=== PATIENT | female | born 1985 | race African-American/Black ===

== ENCOUNTER 2017-02-02 18:16 | Emergency (ER) | payer OTHER ==
[~2017-02-02] VITALS: Ht 170.2 cm; Wt 81.6 kg
[~2017-02-02 18:16] MED LIST: AMOXICILLIN500 MG ORAL; AUGMENTIN TAB875 MG PO; BACTRIM DS TAB1 EAC1 ORAL; CEPHALEXIN500 MG ORAL; CIPRO500 MG PO; CLINDAMYCIN HC150 MG ORAL; CYCLOBENZAPRINE10 MG ORAL; DEPO-ESTRAD5 MG/1 ML IM; DOXYCYCLINE MO100 MG ORAL; FLAGYL500 MG PO; IBUPROFEN600 MG ORAL; IBUPROFEN800 MG ORAL; KEFLEX500 MG ORAL; NKM; NORCO 5-325 TA1 EACH ORAL; ONDANSETRON ODT4 MG ORAL; PRENATAL MULTI1 EAC1 PO; TRAMADOL HCL50 MG ORAL; TYLENOL/CODEI12.5 ML PO; VICODIN 5-5001 EACH ORAL; ZOFRAN4 MG ORAL
[2017-02-02 18:21] VITALS: BP 122/73
[2017-02-02] MEDS ORDERED: ROBAXIN-750750 MG PO (19:08)
[2017-02-02] MEDS ORDERED: IBUPROFEN600 MG ORAL (19:08)
[2017-02-02 19:20] VITALS: BP 122/73
--- NOTE | 2017-02-05 15:41 | Emergency Room Report ---
History of Present Illness General Chief Complaint: Lower Back Pain or Injury Source: Patient Present Illness HPI The patient is a 31-year-old female presenting for left-sided back pain which occurred while moving heavy furniture yesterday. The patient is unsure of any injury that occurred during this time. Pain is primarily at the left mid back and radiates to the L lower back. It is worse with twisting motion. She denies previous injury to this area. It is described as an 8/10 dull ache. She has taken naproxen which does help. She denies any other symptoms including numbness/tingling, N, V, F, chills, weakness, abd pain Allergies: Coded Allergies: No Known Allergies (Unverified , 10/12/12) Patient History Past Medical History: see triage record Pertinent Family History: none Last Menstrual Period: 4-25 Now: No Reviewed Nursing Documentation: PMH: Agreed, PSxH: Agreed Nursing Documentation-PMH Past Medical History: No History, Except For Hx Hypertension: Yes - diet controlled Review of Systems All Other Systems: negative except mentioned in HPI Physical Exam Vital Signs Date Time Temp Pulse Resp B/P Pulse Ox O2 Delivery O2 Flow Rate FiO2 02/02/17 18:21 98.2 70 18 122/73 98 Room Air Sp02 EP Interpretation: reviewed, normal General Appearance: no apparent distress, alert, GCS 15, non-toxic Head: normocephalic, atraumatic Eyes: bilateral eye PERRL, bilateral eye normal inspection ENT: hearing grossly normal, normal pharynx, no angioedema, normal voice Neck: full range of motion, supple/symm/no masses Respiratory: chest non-tender, lungs clear, normal breath sounds, speaking full sentences Musculoskeletal: normal inspection, gait/station normal, normal range of motion , tender - TTP over the L lumbar paraspinous muscles Neurologic: alert, oriented x3, responsive, motor strength/tone normal, sensory intact, normal gait, speech normal Psychiatric: judgement/insight normal, memory normal, mood/affect normal, no suicidal/homicidal ideation Skin: normal color, no rash, warm/dry, well hydrated Lymphatic: no adenopathy Medical Decision Making PA Attestation Dr. Garcia is my supervising physician. Patient management was discussed with my supervising physician Diagnostic Impression: Primary Impression: Muscle strain ER Course The patient is a 31-year-old female presenting for left-sided back pain which occurred while moving heavy furniture yesterday Ddx considered include but not limited to lumbar strain, degenerative disease, disc herniation PE: vitals WNL. NAD There is no midline tenderness. There is tenderness to palpation over the left lumbar paraspinous muscles. Normal gait. Normal active range of motion. The patient is given Motrin and Robaxin and will followup with PMD. ER precautions are given Last Vital Signs Date Time Temp Pulse Resp B/P Pulse Ox O2 Delivery O2 Flow Rate FiO2 02/02/17 19:20 98.2 70 18 122/73 98 Room Air Status: improved Disposition: HOME, SELF-CARE Condition: Stable Scripts Methocarbamol* (ROBAXIN-750*) 750 Mg Tablet 750 MG PO TID, #21 TAB 0 Refills Prov: MARIANA BRIONES.AJanelle 02/02/17 Ibuprofen* (MOTRIN*) 600 Mg Tablet 600 MG ORAL Q6H Y for For Pain, #30 TAB Prov: MARIANA BRIONES 02/02/17 Referrals: [facility],REFERRING (PCP) Patient Instructions: Back Pain, Adult Additional Instructions: I discussed my findings with the patient. All questions and concerns have been answered. Treatment and medication compliance have been addressed. I advised the patient that they need to follow up with PMD in 3-5 days. Return to ED if pain remains or worsens, numbness or tingling occurs, new rash is noticed, fever is noticed, or if needed for any reason. Patient verbalized understanding of discharge instructions. MARIANA BRIONES February 05, 2017 15:40
== END 2017-02-02 19:20 | disposition home or self-care (01) ==
LOC: EMR 18:55
DX: S39.012A Strain of muscle, fascia and tendon of lower back, initial encounter (principal); X50.0XXA Overexertion from strenuous movement or load, initial encounter; Y93.9 Activity, unspecified; Y92.9 Unspecified place or not applicable; I10 Essential (primary) hypertension
CPT/HCPCS: 99284

== ENCOUNTER 2017-10-26 17:26 | Emergency (ER) | payer MEDICAID, OTHER ==
[~2017-10-26] VITALS: Ht 170.2 cm; Wt 77.1 kg
[~2017-10-26 17:26] MED LIST changes: +ROBAXIN-750750 MG PO
[2017-10-26 17:48] VITALS: BP 117/73
[2017-10-26] MEDS ORDERED: TAMIFLU75 MG ORAL (18:07)
--- NOTE | 2017-10-26 18:07 | Emergency Room Report ---
History of Present Illness General Chief Complaint: Sore Throat Source: Patient, Medical Record Present Illness HPI 32-year-old female patient presents ER complaining of sore throat and flulike symptoms for the past 2 days. Patient denies fever. Patient reports sore throat, nausea, vomiting, watery diarrhea. Patient denies blood in vomit or stool or diarrhea. Patient states she is able to tolerate fluids by mouth; states it is painful when swallowing when she eats. Patient reports taking ibuprofen and cough the patient home with mild relief of symptoms. Patient presented with daughter who had similar symptoms. Patient reports history of sick contacts in the house. Patient denies chest pain, SOB, rash, dysuria, hematuria. Allergies: Coded Allergies: No Known Allergies (Unverified , 10/12/12) Patient History Past Medical History: see triage record Last Menstrual Period: 09/25/17 Immunizations: UTD Reviewed Nursing Documentation: PMH: Agreed, PSxH: Agreed Nursing Documentation-PMH Past Medical History: No History, Except For Hx Hypertension: Yes - diet controlled Review of Systems All Other Systems: negative except mentioned in HPI Physical Exam Vital Signs Date Time Temp Pulse Resp B/P (MAP) Pulse Ox O2 Delivery O2 Flow Rate FiO2 10/26/17 17:35 98.1 87 18 117/73 97 Room Air Sp02 EP Interpretation: reviewed, normal General Appearance: no apparent distress, alert, GCS 15, non-toxic Head: normocephalic, atraumatic Eyes: bilateral eye normal inspection, bilateral eye PERRL ENT: hearing grossly normal, normal pharynx, TMs + canals normal, uvula midline , moist mucus membranes, nasal congestion, pharyngeal erythema Neck: full range of motion Respiratory: chest non-tender, lungs clear, normal breath sounds, speaking full sentences Cardiovascular #1: regular rate, rhythm Gastrointestinal: normal bowel sounds, non tender, soft, no mass, no organomegaly, non-distended, no guarding, no rebound Genitourinary: no CVA tenderness Musculoskeletal: back normal, digits/nails normal, gait/station normal, normal range of motion, non-tender, calf tenderness Neurologic: alert, oriented x3, responsive, motor strength/tone normal, sensory intact, speech normal Psychiatric: mood/affect normal Skin: normal color, no rash, warm/dry, well hydrated Lymphatic: adenopathy Medical Decision Making PA Attestation Dr. Vitale is my supervising Physician whom patient management has been discussed with. Diagnostic Impression: Primary Impression: Upper respiratory infection, viral ER Course Pt presents to ED c/o flu-like symptoms. DDX considered but are not limited to influenza, viral URI, strep throat, rhinitis, sinusitis, otitis media. VITAL SIGNS are WNL, patient is afebrile ORDERS: none required at this time, diagnosis is clinical ED INTERVENTIONS: none required at this time DISCHARGE: At this time pt is stable for d/c to home. -Rx given for Prednisone -Rx given for Tamiflu for influenza. Patient to take medications as instructed, continue to take medications at home as instructed. Patient provided with work note. Will provide with patient care instructions and any necessary prescriptions. Care plan and follow-up instructions provided. Patient instructed to follow-up with primary care provider in 3 - 5 days. Patient questions asked and answered. ER precautions given. Patient instructed to return to ER immediately for any new or worsening of symptoms including but not limited to increasing SOB, persistent fever. Last Vital Signs Date Time Temp Pulse Resp B/P (MAP) Pulse Ox O2 Delivery O2 Flow Rate FiO2 10/26/17 17:48 98.1 78 18 117/73 97 Room Air Disposition: HOME, SELF-CARE Condition: Stable Scripts Prednisone* (PREDNISONE*) 20 Mg Tablet 20 MG ORAL DAILY for 2 Days, #2 TAB 0 Refills Prov: Edinson Stovall 10/26/17 Oseltamivir Phosphate (Tamiflu) 75 Mg Capsule 75 MG ORAL TWICE A DAY for 5 Days, #10 CAP Prov: Edinson Stovall 10/26/17 Patient Instructions: Diarrhea, Adult, Ylnb-in-Ssma, Influenza, Adult, Easy-to- Read, Sore Throat Additional Instructions: Followup with primary care provider in 3 -5 days. Take medications as directed. Patient questions asked and answered. ER precautions given, patient instructed to return to ER immediately for any new or worsening of symptoms. Edinson Stovall Oct 26, 2017 18:07
[2017-10-26] MEDS ORDERED: PREDNISONE20 MG ORAL (18:31)
[2017-10-26 18:44] VITALS: BP 117/73
== END 2017-10-26 18:55 | disposition home or self-care (01) ==
LOC: EMR 18:05
DX: J06.9 Acute upper respiratory infection, unspecified (principal); B34.9 Viral infection, unspecified; I10 Essential (primary) hypertension
CPT/HCPCS: 99283; J7512

== ENCOUNTER 2018-02-16 17:02 | Emergency (ER) | payer MEDICAID ==
[~2018-02-16] VITALS: Ht 170.2 cm; Wt 83.9 kg
[~2018-02-16 17:02] MED LIST changes: +PREDNISONE20 MG ORAL; +TAMIFLU75 MG ORAL
[2018-02-16 17:19] VITALS: BP 119/78
[2018-02-16] MEDS ORDERED: ROBAXIN500 MG PO (17:37)
[2018-02-16] MEDS ORDERED: LIDOCAINE700 M1 TP (17:37)
[2018-02-16] MEDS ORDERED: TYLENOL EXTRA500 MG ORAL (17:37)
--- NOTE | 2018-02-16 17:39 | Emergency Room Report ---
History of Present Illness General Chief Complaint: Lower Back Pain or Injury Source: Patient Present Illness HPI 32-year-old female patient presents ER complaining of low back pain. Patient reports "I think it's a muscle spasm". Patient reports history muscle spasms in the past treated with muscle relaxants. Patient reports radiation of pain down her right leg to her knee. 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 denies history of cancer or drug use. Denies history of kidney stones. Denies bowel or bladder problems , denies dysuria, hematuria. Reports able to ambulate independently. Denies chest pain, fever, shortness of breath, abdominal pain. Denies acute injury. Reports history of similar symptoms, reports had imaging done at that time, negative for acute disease. Allergies: Coded Allergies: No Known Allergies (Unverified , 10/12/12) Patient History Past Medical History: see triage record Last Menstrual Period: 02/10/18 Reviewed Nursing Documentation: PMH: Agreed; PSxH: Agreed Nursing Documentation-PMH Past Medical History: No Stated History Hx Hypertension: Yes - diet controlled Review of Systems All Other Systems: negative except mentioned in HPI Physical Exam Vital Signs Date Time Temp Pulse Resp B/P (MAP) Pulse Ox O2 Delivery O2 Flow Rate FiO2 02/16/18 17:09 98.1 81 16 119/78 96 Room Air 98.1 Sp02 EP Interpretation: reviewed, normal General Appearance: well appearing, no apparent distress, alert, GCS 15, non- toxic Head: normocephalic, atraumatic Eyes: bilateral eye normal inspection, bilateral eye PERRL ENT: hearing grossly normal, normal pharynx, no angioedema, normal voice, uvula midline, moist mucus membranes Neck: full range of motion Respiratory: lungs clear, normal breath sounds, no rhonchi, no respiratory distress, no accessory muscle use, no wheezing, speaking full sentences Cardiovascular #1: regular rate, rhythm, no edema Gastrointestinal: non tender, soft, no mass, non-distended, no guarding, no rebound Genitourinary: no CVA tenderness Musculoskeletal: back normal, digits/nails normal, gait/station normal, normal range of motion, no calf tenderness, Ana Laura's Sign negative, other - no bony stepoff, no bony TTP, tender - right lumbosacral region Neurologic: alert, oriented x3, responsive, motor strength/tone normal, SLR negative, sensory intact, cerebellar normal, normal gait, speech normal Psychiatric: mood/affect normal Skin: no rash Lymphatic: no adenopathy Medical Decision Making PA Attestation Dr. De Jesus is my supervising Physician whom patient management has been discussed with. Diagnostic Impression: Primary Impression: Lumbosacral strain ER Course Pt presents to ED c/o back pain. DDX considered but are not limited to sprain, strain, cauda equina, muscle spasm. Low suspicion for cauda equina, no bowel or bladder incontinence or retention. No fever, nontoxic appearing, no radiation of pain, low suspicion for epidural mass. denies urinary symptoms, low suspicion for UTI, does not require urinalysis at this time. VITAL SIGNS are WNL, patient is afebrile Ordered pain medication. ER COURSE: On PE, mild tenderness palpation over right lumbosacral region, negative straight leg raise, no bony step-off, no bony tenderness to palpation. Right Patient reports lumbosacral pain with lateral twist to the left, full ROM. informed patient likely secondary to muscle spasm. Patient reports had imaging done previously, does not require imaging at this time. Advised patient on rest, ice, heat. Follow-up with PCP. Followup with pain management and/or PT. Request referral from PCP. Followup wtih PCP for further MRI and/or CT imaging as needed. DISCHARGE: -Rx provided for Tylenol -Rx provided for Lidocaine patch -Rx provided for Robaxin. SE may cause drowsiness, do not take prior to drinking , driving, or operating heJANZZ machinery. At this time pt. is stable for d/c to home. At this time patient is resting comfortably, in no acute distress, nontoxic appearing, smiling and talking without difficulty. Will provide printed patient care instructions, and any necessary prescriptions. Patient instructed to follow with primary care provider for further treatment and referral as needed. Care plan and follow up instructions have been discussed with the patient prior to discharge. Patient reports understanding and agreement to treatment plan. Patient questions asked and answered. ER precautions given, patient instructed to return to ER immediately for any new or worsening of symptoms. - Please note that this Emergency Department Report was dictated using [employer] drawer in technology software, occasionally this can lead to erroneous entry secondary to interpretation by the dictation equipment. Last Vital Signs Date Time Temp Pulse Resp B/P (MAP) Pulse Ox O2 Delivery O2 Flow Rate FiO2 02/16/18 17:09 98.1 81 16 119/78 96 Room Air 98.1 Disposition: HOME, SELF-CARE Condition: Stable Scripts Methocarbamol* (ROBAXIN*) 500 Mg Tablet 500 MG PO TID, #21 TAB 0 Refills Prov: Edinson Stovall 02/16/18 Lidocaine (Lidocaine) 1 Each Adh..patch 700 MG TP DAILY for 7 Days, #7 PATCH Prov: Edinson Stovall 02/16/18 Acetaminophen* (TYLENOL EXTRA STRENGTH*) 500 Mg Tablet 500 MG ORAL Q8H PRN for Prn Headache/Temp > 101, #30 TAB 0 Refills Prov: Edinson Stovall 02/16/18 Patient Instructions: Low Back Sprain With Rehab-[facility], Lumbosacral Strain Additional Instructions: Patient instructed to follow up with primary care provider 3-5 and discuss further referral and imaging at that time. Discuss referral to PT and pain management. Patient instructed on rest, ice and heat. Do not take muscle relaxant prior to drinking, driving, or operating heavy machinery. Take medications as directed. Patient questions asked and answered. ER precautions given, patient instructed to return to ER immediately for any new or worsening of symptoms. Edinson Stovall February 16, 2018 17:39
[2018-02-16] MEDS ORDERED: Methocarbamol 500mg tab ORAL ONE (17:45)
[2018-02-16] MEDS ORDERED: Acetaminophen 500mg (ES) tab ORAL ONE (17:45)
[2018-02-16 17:47] VITALS: BP 119/78
== END 2018-02-16 17:50 | disposition home or self-care (01) ==
LOC: EMR 17:48
DX: S39.012A Strain of muscle, fascia and tendon of lower back, initial encounter (principal); X58.XXXA Exposure to other specified factors, initial encounter; I10 Essential (primary) hypertension
CPT/HCPCS: 99284

== ENCOUNTER 2018-02-25 08:47 | Emergency (ER) | payer MEDICAID ==
[~2018-02-25] VITALS: Ht 170.2 cm; Wt 83.9 kg
[~2018-02-25 08:47] MED LIST changes: +LIDOCAINE700 M1 TP; +ROBAXIN500 MG PO; +TYLENOL EXTRA500 MG ORAL
[2018-02-25] MEDS ORDERED: IBUPROFEN600 MG ORAL (09:05)
[2018-02-25 09:06] VITALS: BP 123/75
[2018-02-25 09:07] VITALS: BP 123/75
--- NOTE | 2018-02-25 09:11 | Emergency Room Report ---
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 the pain has worsened Denies any paresthesia Denies any loss of control of bowel or urination Pain is 6 out of 10 localized to the mid back and also the right lower back region Denies any abdominal pain denies any other fall or trauma Allergies: Coded Allergies: No Known Allergies (Unverified , 10/12/12) Patient History Past Medical History: see triage record Pertinent Family History: none Reviewed Nursing Documentation: PMH: Agreed; PSxH: Agreed Nursing Documentation-PMH Hx Hypertension: Yes - diet controlled Review of Systems All Other Systems: negative except mentioned in HPI Physical Exam Vital Signs Date Time Temp Pulse Resp B/P (MAP) Pulse Ox O2 Delivery O2 Flow Rate FiO2 02/25/18 08:49 98.1 76 20 123/75 98 Room Air 98.1 Sp02 EP Interpretation: reviewed, normal General Appearance: well appearing, no apparent distress Head: normocephalic, atraumatic Eyes: bilateral eye PERRL, bilateral eye EOMI ENT: normal pharynx, no angioedema Neck: supple Respiratory: lungs clear Cardiovascular #1: regular rate, rhythm, no edema Gastrointestinal: normal bowel sounds, non tender, soft Genitourinary: no CVA tenderness Musculoskeletal: other - Discomfort on palpation of the right paralumbar lumbar region, L3-4-5, no obvious midline step-off, sensory intact Neurologic: alert, oriented x3, 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 tested, motor strength/tone normal Skin: no rash Medical Decision Making Diagnostic Impression: Primary Impression: Back pain ER Course Patient's clinical exam is consistent with exacerbation of low back pain Patient will best benefit from referral to outpatient clinic Worker's Comp./ Versus primary physician At this time I feel of the repetitive motion and standing and lifting does exacerbate the discomfort And patient provided with a note for limited activity for the next 3-4 days until follow-up can be obtained by outpatient resource Last Vital Signs Date Time Temp Pulse Resp B/P (MAP) Pulse Ox O2 Delivery O2 Flow Rate FiO2 02/25/18 09:06 98.1 76 20 123/75 98 Room Air 98.1 Status: unchanged Disposition: HOME, SELF-CARE Condition: Stable Scripts Ibuprofen* (MOTRIN*) 600 Mg Tablet 600 MG ORAL Q8H PRN for For Pain, #20 TAB 0 Refills Prov: Chuy De Jesus DO 02/25/18 Referrals: NOT CHOSEN [facility],REFERRING [facility],REFERRING (PCP) Departure Forms: Return to Work Return to Work in (Days): 3 Return to Work Date: Mar 01, 2018 Other Restrictions: limited lifting(0-5 Lbs), limited standing(30 min) x 3-5 days Patient Instructions: Back Pain, Adult Additional Instructions: Patient is provided with the discharge instructions notified to follow up with primary doctor in the next 2-3 days otherwise return to the er with any worsening symptoms. Please note that this report is being documented using [employer] technology. This can lead to erroneous entry secondary to incorrect interpretation by the dictating instrument. Chuy De Jesus DO February 25, 2018 09:11
== END 2018-02-25 09:20 | disposition home or self-care (01) ==
LOC: EMR 08:57
DX: M54.5 Low back pain (principal)
CPT/HCPCS: 99283

== ENCOUNTER 2018-03-24 18:08 | Emergency (ER) | payer SELFPAY ==
[~2018-03-24] VITALS: Ht 170.2 cm; Wt 90.7 kg
[2018-03-24] MEDS ORDERED: LIDOCAINE700 M1 TP (19:41)
[2018-03-24] MEDS ORDERED: TYLENOL EXTRA500 MG ORAL (19:41)
[2018-03-24] MEDS ORDERED: ROBAXIN500 MG PO (19:41)
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
[2018-03-24] MEDS ORDERED: Ketorolac 30mg Inj IM ONE (19:45)
[2018-03-24 20:00] VITALS: BP 120/84
[2018-03-24 20:06] VITALS: BP 120/84
== END 2018-03-24 20:06 | disposition home or self-care (01) ==
LOC: EMR 19:00
DX: M54.2 Cervicalgia (principal); M54.9 Dorsalgia, unspecified; R51 Headache; I10 Essential (primary) hypertension; V43.52XA Car driver injured in collision with other type car in traffic accident, initial encounter; Y92.410 Unspecified street and highway as the place of occurrence of the external cause
CPT/HCPCS: 96372; 99284; J1885

== ENCOUNTER 2018-08-09 13:30 | Emergency (ER) | payer MEDICAID ==
[~2018-08-09] VITALS: Ht 170.2 cm; Wt 90.7 kg
[2018-08-09] MEDS ORDERED: Norco 5mg/325mg tab ORAL ONE (15:00)
[2018-08-09] MEDS ORDERED: Fluorescein Strips BOTH EYES ONE (15:15)
[2018-08-09] MEDS ORDERED: Tetracaine 0.5% Opth 4ml Soln RIGHT EYE ONE (15:15)
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
[2018-08-09] MEDS ORDERED: OCUFLOX5 ML OP (15:32)
[2018-08-09] MEDS ORDERED: TYLENOL EXTRA500 MG ORAL (15:32)
[2018-08-09 15:36] VITALS: BP_SYST 121; BP_SYST 125; BP_DIAS 78; BP_DIAS 84
== END 2018-08-09 15:36 | disposition home or self-care (01) ==
LOC: EMR 15:36
DX: S05.01XA Injury of conjunctiva and corneal abrasion without foreign body, right eye, initial encounter (principal); X58.XXXA Exposure to other specified factors, initial encounter; Y92.9 Unspecified place or not applicable; H10.9 Unspecified conjunctivitis
CPT/HCPCS: 99283

== ENCOUNTER 2019-01-07 20:42 | Emergency (ER) | payer MEDICAID ==
[~2019-01-07] VITALS: Ht 170.2 cm; Wt 90.7 kg
[~2019-01-07 20:42] MED LIST changes: +OCUFLOX5 ML OP
[2019-01-07] MEDS ORDERED: prenatal (20:50)
--- NOTE | 2019-01-07 20:52 | NUR ---
ED Nurse Note: pt walked in c/o vaginal bleeding started today, pt reports she is 12 wks with twins, hx cone biopsy in august and per pt's wood panel inspector statement, pt was advised to come to ED. pt states it is spotting and had less than 1 pad. denies other sx. pt also states she has UTI and currently taking macrobid for UTI. Will cont monitor. G 5 T 3 P 0 A 2 L 3
[2019-01-07 21:15] LABS: BASOPHILS % (AUTO) 1.2 % (0.0-2.0); EOSINOPHILS % (AUTO) 1.8 % (0.0-3.0); HEMATOCRIT 38.7 % (37.0-47.0); LYMPHOCYTES % (AUTO) 17.8 % (20.0-45.0); MEAN CORPUSCULAR VOLUME 88 FL (80-99); MONOCYTES % (AUTO) 8.4 % (1.0-10.0); NEUTROPHILS % (AUTO) 70.9 % (45.0-75.0); PLATELET COUNT 300 K/UL (150-450); RED BLOOD COUNT 4.42 M/UL (4.20-5.40); RED CELL DISTRIBUTION WIDTH 12.6 % (11.6-14.8); WHITE BLOOD COUNT 15.6 K/UL (4.8-10.8)
--- NOTE | 2019-01-07 21:15 | NUR ---
ED Nurse Note: pt off to ultrasound.
[2019-01-07 21:17] LABS: APPEARANCE,URINE CLEAR; BILIRUBIN, URINE NEGATIVE (NEGATIVE); GLUCOSE, URINE (UA) NEGATIVE (NEGATIVE); KETONES,URINE 1+ (NEGATIVE); LEUKOCYTE ESTERASE ,URINE 1+ (NEGATIVE); NITRITE,URINE NEGATIVE (NEGATIVE); PH,URINE 5 (4.5-8.0); PROTEIN,URINE 1+ (NEGATIVE); UROBILINOGEN,URINE NORMAL MG/DL (0.0-1.0)
[2019-01-07 21:18] LABS: COLOR,URINE YELLOW
[2019-01-07 21:21] LABS: INR 0.9 (0.9-1.1)
[2019-01-07 21:23] LABS: ANION GAP 10 mmol/L (5-15); BLOOD UREA NITROGEN 7 mg/dL (7-18); CALCIUM 9.7 MG/DL (8.5-10.1); CARBON DIOXIDE 24 MMOL/L (21-32); CHLORIDE 102 MMOL/L (98-107); CREATININE 0.7 MG/DL (0.55-1.30); POTASSIUM 3.6 MMOL/L (3.5-5.1); SODIUM 136 MMOL/L (136-145)
[2019-01-07 21:28] LABS: ALANINE AMINOTRANSFERASE 21 U/L (12-78); ALBUMIN 3.6 G/DL (3.4-5.0); ALBUMIN/GLOBULIN RATIO 0.9 (1.0-2.7); ALKALINE PHOSPHATASE 56 U/L (46-116); ASPARTATE AMINO TRANSFERASE 12 U/L (15-37); BILIRUBIN,TOTAL 0.3 MG/DL (0.2-1.0)
--- NOTE | 2019-01-07 22:38 | Diagnostic Imaging Report ---
EXAM: US , Transvaginal CLINICAL HISTORY: ABD PAIN TECHNIQUE: Real-time transvaginal obstetrical ultrasound of the maternal pelvis and a first trimester with image documentation. Transvaginal imaging was used for better evaluation of the fetus and adnexa. COMPARISON: No relevant prior studies available. FINDINGS: Gestation: A single intrauterine gestational sac is identified with 2 living fetuses. Fetus A heart rate is 162 bpm. Fetus B heart rate is 171 bpm. 2 yolk sacs are visualized. The mean crown-rump length of fetus A is 3.04 cm corresponding to 9 weeks 6 days gestation. The mean crown-rump length of fetus B is 3.68 cm corresponding to 10 weeks 4 days gestation. Mean gestational sac diameter of fetus B is 8.29 cm. Gestational age by last menstrual period is 11 weeks 1 day. MELL: Estimated date of delivery by ultrasound 08/06/19. Placenta/amniotic fluid: 2 small sonolucent foci are seen in the placenta likely representing venous lakes. Uterus/cervix: The uterus measures 15.1 x 10.0 x 9.7 cm. The cervix measures 5.1 cm in length. No myometrial mass. Ovaries: Maternal ovaries are not visualized. Free fluid: No free fluid. IMPRESSION: 1. Single intrauterine gestational sacs with 2 living fetuses. Calculated ultrasound age of fetus A is 9 weeks 6 days and fetus B is 10 weeks 4 days. 2. Estimated date of delivery by ultrasound 08/06/19.
[2019-01-07 22:53] VITALS: BP 120/78
--- NOTE | 2019-01-07 22:53 | NUR ---
ED Nurse Note: pt cleared to be d/c per ERMD, pt discharge and aftercare instruction provided, pt education done via discussion and handout, pt advised to follow up with medical device sales consultant, return to ed if sx worsen or new sx develop, pt verbalized understanding and agrees with plan, vss, ambulatory w/ steady gait, left w/ all belongings. ID band removed, iv d/c.
--- NOTE | 2019-01-08 00:08 | Emergency Room Report ---
History of Present Illness General Chief Complaint: Complications Source: Patient Present Illness HPI 33-year-old female presents ED for evaluation. Patient complaining of vaginal bleeding which started today. States she is about 12 weeks with twins. She called her MIDDLE SCHOOL BASEBALL COACH who told her to come to the ER for ultrasound. Denies pain. Denies fevers or chills. No other aggravating relieving factors. Denies any other associated symptoms Allergies: Coded Allergies: No Known Allergies (Unverified , 08/09/18) Patient History Past Medical History: none Past Surgical History: none Pertinent Family History: none Social History: Denies: smoking, alcohol use, drug use Last Menstrual Period: 10/21/2018 Now: Yes - 3 months - twins : 5 Para: 3 Immunizations: UTD Reviewed Nursing Documentation: PMH: Agreed; PSxH: Agreed Nursing Documentation-PMH Past Medical History: No History, Except For Hx Hypertension: No Hx Gastrointestinal Problems: No - comb biopsy 09/12/2018 Review of Systems All Other Systems: negative except mentioned in HPI Physical Exam Vital Signs Date Time Temp Pulse Resp B/P (MAP) Pulse Ox O2 Delivery O2 Flow Rate FiO2 01/07/19 20:46 98.2 96 16 128/82 96 Sp02 EP Interpretation: reviewed, normal General Appearance: no apparent distress, alert, GCS 15, non-toxic Head: normocephalic, atraumatic Eyes: bilateral eye normal inspection, bilateral eye PERRL ENT: hearing grossly normal, normal pharynx, no angioedema, normal voice Neck: full range of motion, supple/symm/no masses Respiratory: chest non-tender, lungs clear, normal breath sounds, speaking full sentences Cardiovascular #1: regular rate, rhythm, no edema Cardiovascular #2: 2+ carotid (R), 2+ carotid (L), 2+ radial (R), 2+ radial (L) , 2+ dorsalis pedis (R), 2+ dorsalis pedis (L) Gastrointestinal: normal bowel sounds, non tender, soft, non-distended, no guarding, no rebound Rectal: deferred Genitourinary: normal inspection, no CVA tenderness Musculoskeletal: back normal, gait/station normal, normal range of motion, non- tender Neurologic: alert, oriented x3, responsive, motor strength/tone normal, sensory intact, speech normal Psychiatric: judgement/insight normal, memory normal, mood/affect normal, no suicidal/homicidal ideation Reflexes: 3+ bicep (R), 3+ bicep (L), 3+ tricep (R), 3+ tricep (L), 3+ knee (R) , 3+ knee (L) Skin: normal color, no rash, warm/dry, well hydrated Lymphatic: no adenopathy Medical Decision Making Diagnostic Impression: Primary Impression: Threatened ER Course Hospital Course 33-year-old F presents to ED complaining of vaginal bleeding. approxiamtely 12 weeks with twins Differential diagnoses include: gastrits, gastroenterits, ectopic , ovarian torsion/cyst, UTI Clinical course Patient placed on stretcher in ED. After initial history and physical I ordered labs, IV fluids and pelvic ultrasound. Labs-no leukocytosis, electrolytes okay, beta hCG > [id number], UA unremarkable OB US - twin gestation. One approximatly 9 weeks and one approximately 10 weeks. Both with heart rates. Discussed findings with patient. We'll provide copies of labs and ultrasound. Recommend close follow-up with MIDDLE SCHOOL BASEBALL COACH. Diagnosis - threatend Stable and discharged to home. Followup with PMD/MIDDLE SCHOOL BASEBALL COACH. Return to ED if symptoms recur or worsen Labs Test 01/07/19 21:00 White Blood Count 15.6 K/UL (4.8-10.8) Red Blood Count 4.42 M/UL (4.20-5.40) Hemoglobin 13.0 G/DL (12.0-16.0) Hematocrit 38.7 % (37.0-47.0) Mean Corpuscular Volume 88 FL (80-99) Mean Corpuscular Hemoglobin 29.4 PG (27.0-31.0) Mean Corpuscular Hemoglobin Concent 33.6 G/DL (32.0-36.0) Red Cell Distribution Width 12.6 % (11.6-14.8) Platelet Count 300 K/UL (150-450) Mean Platelet Volume 5.6 FL (6.5-10.1) Neutrophils (%) (Auto) 70.9 % (45.0-75.0) Lymphocytes (%) (Auto) 17.8 % (20.0-45.0) Monocytes (%) (Auto) 8.4 % (1.0-10.0) Eosinophils (%) (Auto) 1.8 % (0.0-3.0) Basophils (%) (Auto) 1.2 % (0.0-2.0) Prothrombin Time 9.8 SEC (9.30-11.50) Prothromb Time International Ratio 0.9 (0.9-1.1) Activated Partial Thromboplast Time 27 SEC (23-33) Urine Color Yellow Urine Appearance Clear Urine pH 5 (4.5-8.0) Urine Specific [place] 1.025 (1.005-1.035) Urine Protein 1+ (NEGATIVE) Urine Glucose (UA) Negative (NEGATIVE) Urine Ketones 1+ (NEGATIVE) Urine Blood 1+ (NEGATIVE) Urine Nitrite Negative (NEGATIVE) Urine Bilirubin Negative (NEGATIVE) Urine Urobilinogen Normal MG/DL (0.0-1.0) Urine Leukocyte Esterase 1+ (NEGATIVE) Urine RBC 0-2 /HPF (0 - 2) Urine WBC 2-4 /HPF (0 - 2) Urine Squamous Epithelial Cells Few /LPF (NONE/OCC) Urine Calcium Oxalate Crystals Few /LPF (NONE) Urine Bacteria Few /HPF (NONE) Urine Mucus Moderate /LPF (NONE/OCC) Urine HCG, Qualitative Positive (NEGATIVE) Sodium Level 136 MMOL/L (136-145) Potassium Level 3.6 MMOL/L (3.5-5.1) Chloride Level 102 MMOL/L (98-107) Carbon Dioxide Level 24 MMOL/L (21-32) Anion Gap 10 mmol/L (5-15) Blood Urea Nitrogen 7 mg/dL (7-18) Creatinine 0.7 MG/DL (0.55-1.30) Estimat Glomerular Filtration Rate > 60 mL/min (>60) Glucose Level 76 MG/DL (74-106) Calcium Level 9.7 MG/DL (8.5-10.1) Total Bilirubin 0.3 MG/DL (0.2-1.0) Aspartate Amino Transf (AST/SGOT) 12 U/L (15-37) Alanine Aminotransferase (ALT/SGPT) 21 U/L (12-78) Alkaline Phosphatase 56 U/L (46-116) Total Protein 7.8 G/DL (6.4-8.2) Albumin 3.6 G/DL (3.4-5.0) Globulin 4.2 g/dL Albumin/Globulin Ratio 0.9 (1.0-2.7) Lipase 112 U/L (73-393) Human Chorionic Gonadotropin, Quant 421482 mIU/mL (1-6) CT/MRI/US Diagnostic Results CT/MRI/US Diagnostic Results : Imaging Test Ordered: OB US Impression Gestation: A single intrauterine gestational sac is identified with 2 living fetuses. Fetus A heart rate is 162 bpm. Fetus B heart rate is 171 bpm. 2 yolk sacs are visualized. The mean crown-rump length of fetus A is 3.04 cm corresponding to 9 weeks 6 days gestation. The mean crown-rump length of fetus B is 3.68 cm corresponding to 10 weeks 4 days gestation. Mean gestational sac diameter of fetus B is 8.29 cm. Gestational age by last menstrual period is 11 weeks 1 day. MELL: Estimated date of delivery by ultrasound 08/06/19. Placenta/amniotic fluid: 2 small sonolucent foci are seen in the placenta likely representing venous lakes. Uterus/cervix: The uterus measures 15.1 x 10.0 x 9.7 cm. The cervix measures 5.1 cm in length. No myometrial mass. Ovaries: Maternal ovaries are not visualized. Free fluid: No free fluid. Last Vital Signs Date Time Temp Pulse Resp B/P (MAP) Pulse Ox O2 Delivery O2 Flow Rate FiO2 01/07/19 22:53 98.2 95 16 120/78 99 Status: improved Disposition: HOME, SELF-CARE Condition: Stable Patient Instructions: Threatened Miscarriage, [id number] Alvaro Garcia MD Jan 08, 2019 00:08
== END 2019-01-07 22:54 | disposition home or self-care (01) ==
LOC: EMR 21:16
DX: O20.0 Threatened abortion (principal); Z3A.12 12 weeks gestation of pregnancy
CPT/HCPCS: 36415; 76801; 76830; 80053; 81003; 81025; 83690; 84702; 85025; 85610; 85730; 86850; 86900; 86901; 96360; 99284